=== PATIENT | male | born 1965 | race Caucasian/White ===

== ENCOUNTER 2020-12-27 05:28 | Day surgery (SDC) | payer BC ==
[2020-12-22 14:12] LABS: BASOPHILS # (AUTO) 0.1 X10'3 (0-0.2); EOSINOPHILS # (AUTO) 0.1 X10'3 (0-0.9); EOSINOPHILS % (AUTO) 1.4 % (0-6); LYMPHOCYTES # (AUTO) 1.2 X10'3 (1.1-4.8); LYMPHOCYTES % (AUTO) 16.1 % (21-51); MEAN CORPUSCULAR HEMOGLOBIN 31.3 PG (27.0-31.0); MEAN CORPUSCULAR HGB CONC 34.7 g/dL (33.0-36.5); MEAN CORPUSCULAR VOLUME 90.2 FL (78-98); MEAN PLATELET VOLUME 9.3 FL (7.4-10.4); MONOCYTES # (AUTO) 0.5 X10'3 (0-0.9); MONOCYTES % (AUTO) 7.3 % (2-12); NEUTROPHILS # (AUTO) 5.4 X10'3 (1.8-7.7); NEUTROPHILS % (AUTO) 74.2 % (42-75); PRE OP HEMATOCRIT 44.3 % (42.0-52.0); PRE OP HEMOGLOBIN 15.4 g/dL (14.0-17.9); PRE OP PLATELET COUNT 187 X10'3 (140-440); RED BLOOD COUNT 4.91 X10'6 (4.70-6.10); RED CELL DISTRIBUTION WIDTH 14.3 % (11.5-14.5)
[2020-12-22 14:26] LABS: ALBUMIN 3.8 G/DL (3.4-5.0); ALBUMIN/GLOBULIN RATIO 1.1 (1.1-1.5); ALKALINE PHOSPHATASE 102 IU/L (46-116); BLOOD UREA NITROGEN 19 MG/DL (7-18); BUN/CREATININE RATIO 18.3 (5.4-32.0); CALCIUM 8.9 MG/DL (8.5-10.1); CHLORIDE 103 MMOL/L (99-107); CREATININE 1.04 MG/DL (0.60-1.10); PRE OP ALT 53 U/L (30-65); PRE OP ANION GAP 8 (8-16); PRE OP AST 26 U/L (10-37); PRE OP BILIRUB, TOTAL 0.5 MG/DL (0.0-1.0); PRE OP GLUCOSE 140 MG/DL (70-104); PRE OP POTASSIUM 3.9 MMOL/L (3.4-5.1); PRE OP SODIUM 140 MMOL/L (135-145); TOTAL CARBON DIOXIDE 29.2 MMOL/L (24-32); TOTAL PROTEIN 7.2 G/DL (6.4-8.2); eGFR 74 ML/MIN
[2020-12-27] VITALS (8 sets, daily range): BP systolic 132–168; BP diastolic 70–89
[~2020-12-27] VITALS: Ht 180.3 cm; Wt 108.8 kg
[~2020-12-27 05:28] MED LIST: ALBU8.5H8 INH; ASCO-139 PO; ASPI-611 PO; ATOR20TA66 PO; BUDE10.22 INH; CHOL20002 PO; FA/M1TAB PO; INSULIN PUMP; LEVO125T PO; LOSA100T57 PO; MAGN500C16 PO; PANT40TA54 PO; TURM1CAP PO; VITA1CAP19 PO; ringers solution, lacted 1,000 ML IV SCH
[2020-12-27] MEDS ORDERED: famotidine 20mg tablet PO ONE (05:30)
[2020-12-27] MEDS ORDERED: LIDOcaine 1% (10mg/ml) 2ml vial ONE (06:12)
[2020-12-27] MEDS ORDERED: sevoflurane 250ml liquid IH ONE (07:10)
[2020-12-27] MEDS ORDERED: propofol 10mg/ml 20ml vial IV ONE (07:10)
[2020-12-27] MEDS ORDERED: fentaNYL/PF 50MCG/1 ML 2ML syringe ONE (07:12)
[2020-12-27] MEDS ORDERED: midazolam 1 mg/ML 2ml injection ONE (07:12)
[2020-12-27] MEDS ORDERED: LIDOcaine 2% (20mg/ml) 5ml vial ONE (07:15)
[2020-12-27] MEDS ORDERED: BUPIVAcaine/PF 2.5mg/ml (0.25%) 10ml vial ONE (07:17)
[2020-12-27] MEDS ORDERED: triamcinolone acetonide 40mg/ml inj ONE (07:17)
[2020-12-27] MEDS ORDERED: naloxone 0.4 mg/ml inj ONE (07:28)
--- NOTE | 2020-12-27 07:30 | NUR ---
ADMITTED TO PACU FROM OR ACCOMPANIED BY ANESTHESIA. INTIAL PHYSICAL ASSESSMENT DONE AND RECORDED. REPORT RECEIVED FROM ANESTHESIA.
[2020-12-27] MEDS ORDERED: fentaNYL/PF 50MCG/1 ML 2ML syringe IV PRN ×2 (07:35)
[2020-12-27] MEDS ORDERED: hydrALAZINE 20mg/ml inj. IV PRN (07:35)
[2020-12-27] MEDS ORDERED: labetalol 20mg/4ml (5mg/ml) syringe IV PRN (07:35)
[2020-12-27] MEDS ORDERED: morphine 4 MG/ML inj SYRINge IV PRN (07:35)
[2020-12-27] MEDS ORDERED: ondansetron/PF 4mg/2ml inj IV PRN (07:35)
[2020-12-27] MEDS ORDERED: morphine 2 MG/ML inj. syringe IV PRN (07:35)
[2020-12-27] MEDS ORDERED: ringers solution, lacted 1,000 ML IV SCH (07:35)
[2020-12-27] MEDS ORDERED: HYDROcodone/acetaminophen 10/325mg tab PO PRN (08:05)
--- NOTE | 2020-12-27 08:30 | NUR ---
DISCHARGE CRITERIA MET, DISCHARGE INSTRUCTIONS GIVEN, DEMONSTRATES VERBAL UNDERSTANDING. DISCHARGED HOME IN GOOD CONDITION.
== END 2020-12-27 08:30 | disposition home or self-care (01) ==
LOC: PAS 05:28 → EDSEX 07:45 → PAS 08:30
PROVIDERS: ATTEND Orthopaedic Surgery
DX: M75.01 Adhesive capsulitis of right shoulder (principal); J44.9 Chronic obstructive pulmonary disease, unspecified; G47.30 Sleep apnea, unspecified; E10.9 Type 1 diabetes mellitus without complications; K21.9 Gastro-esophageal reflux disease without esophagitis; E03.9 Hypothyroidism, unspecified; E66.9 Obesity, unspecified; Z68.34 Body mass index [BMI] 34.0-34.9, adult; Z79.899 Other long term (current) drug therapy; Z79.4 Long term (current) use of insulin; Z79.2 Long term (current) use of antibiotics; Z79.82 Long term (current) use of aspirin; Z98.890 Other specified postprocedural states; Z87.891 Personal history of nicotine dependence; Z72.89 Other problems related to lifestyle; Z80.1 Family history of malignant neoplasm of trachea, bronchus and lung; Z83.6 Family history of other diseases of the respiratory system
CPT/HCPCS: 20610; 23700; 36415; 80053; 85025; 93005; J2001; J2250; J2310; J3010; J3301; J3490; A4618; J2704; J7120

== ENCOUNTER 2025-06-12 08:30 | Outpatient (CLI) | payer BC, MEDICARE ==
[~2025-06-12] VITALS: Ht 175.9 cm; Wt 95.7 kg
[~2025-06-12 08:30] MED LIST changes: +ALBU8.5H17 INH; -ALBU8.5H8 INH; -LOSA100T57 PO; +LOSA100T58 PO; -MAGN500C16 PO; +MAGN500C4 PO; -ringers solution, lacted 1,000 ML IV SCH
[2025-06-12 09:04] LABS: TOTAL HEMOGLOBIN 17.5 G/dl (13.5-17.5)
[2025-06-12] MEDS: albuterol 2.5 MG/3 ML nebule NEB ONE (09:39)
[2025-06-12 09:42] VITALS: PULSE 64; RESP 64; O2SAT 98
[2025-06-12 09:53] VITALS: PULSE 68; RESP 16
--- NOTE | 2025-06-12 14:26 | PROCEDURE NOTE - Respiratory ---
Procedure Note-Respiratory Providers to Copies To 1: SHAZIA JANG MD Procedure Name: This is a complete pulmonary function study dated June 12, 2025. Hemoglobin measurement was done as part of the study. Spirometry measurements: The forced vital capacity is normal. The FEV1 however is somewhat reduced. The FEV1 ratio is also reduced. All of the measured flow rates show significant reduction. After inhaled bronchodilator was administered some of the flow rates show minimal improvement. Lung volume measurements: The total lung capacity is in the upper range of normal. There is elevation of the functional residual capacity and the residual volume measurements. This indicates some degree of air trapping within the lungs. Lung diffusion measurement: The DLCO measurement is normal. It is noted that the KVO measurement is normal as well as the alveolar volume measurement. The hemoglobin measurement is also in the normal range. Airway resistance measurement: The airway resistance measurement is normal. Overall conclusion: This study shows severe abnormality. There is evidence for obstructive ventilatory defect in the moderately severe category. 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 It is strongly recommended that the patient abstain from cigarette smoking. This patient should continue to receive bronchodilator medication on a regular daily basis. We have no previous studies for comparison. SHAZIA JANG MD Jun 12, 2025 14:26
== END 2025-06-12 23:59 | disposition home or self-care (01) ==
LOC: RT 08:30
PROVIDERS: ATTEND Internal Medicine Pulmonary Disease
DX: J44.9 Chronic obstructive pulmonary disease, unspecified (principal)
CPT/HCPCS: 85018; 94060; 94727; 94729; 94760